=== PATIENT | female | born 1985 | race African-American/Black ===

== ENCOUNTER 2017-11-17 15:48 | Emergency (ER) | payer SELFPAY ==
[2017-11-17 15:56] VITALS: BP 141/94
--- NOTE | 2017-11-17 16:45 | ER Document Report ---
HPI - HPI Pain Level: 3 Notes: Patient is a 31-year-old female who presents to the ED complaining of right second digit pain at the PIP joint status post injury 3 weeks ago. Patient states that since then she has had continued swelling and decreased range of motion to that finger. Pain does not radiate. Patient did not get evaluated by anyone prior. She has no other concerns or complaints at this time. Denies any headache, fever, URI, sore throat, chest pain, palpitations, syncope, cough , shortness of breath, wheeze, dyspnea, abdominal pain, nausea/vomiting/diarrhea , urinary retention, dysuria, hematuria, numbness/tingling, muscle paralysis/ weakness, or rash. - ROS Systems Reviewed and Negative: Yes All other systems reviewed and negative - MUSCULOSKELETAL Musculoskeletal: REPORTS: Extremity pain - R index finger Past Medical History - Social History Smoking Status: Never Smoker Family History: Reviewed & Not Pertinent Patient has suicidal ideation: No Patient has homicidal ideation: No Renal/ Medical History: Denies: Hx Peritoneal Dialysis Vertical Provider Document - CONSTITUTIONAL Agree With Documented VS: Yes Notes: PHYSICAL EXAMINATION: GENERAL: Well-appearing, well-nourished and in no acute distress. LUNGS: Breath sounds clear to auscultation bilaterally and equal. No wheezes rales or rhonchi. HEART: Regular rate and rhythm without murmurs, rubs, gallops. Musculoskeletal: Rt index finger: + swelling noted at the PIP joint. LROM to passive/active to flexion. Strength 5+/5. N/V intact. Pt is able to flex at DIP and PIP joints, however. + mild tenderness to the PIP joint. No other tenderness to the hand. Extremities: No cyanosis, clubbing, or edema b/l. Peripheral pulses 2+. Capillary refill less than 3 seconds. NEUROLOGICAL: Normal speech, normal gait. Normal sensory, motor exams PSYCH: Normal mood, normal affect. SKIN: Warm, Dry, normal turgor, no rashes or lesions noted. - INFECTION CONTROL TRAVEL OUTSIDE OF THE [place] IN LAST 30 DAYS: No Course - Re-evaluation Re-evalutation: 11/17/17 17:44 Patient is an afebrile, well-hydrated, 31-year-old female who presents to the ED with an avulsion fracture to her right anterior PIP joint 2nd digit. Vitals are otherwise acceptable. PE is otherwise unremarkable for any neurovascular compromise, open fracture, septic joint. See x-ray result. Finger spot was placed in mild flexion. This injury is already 3 weeks old. Advised patient that she needs to call orthopedics tomorrow to set up an appointment for further evaluation and management. Recheck with your PCM in 3-5 days as well. Return to the ED with any worsening/concerning symptoms otherwise as reviewed discharge. Patient is in agreement. - Vital Signs Vital signs: Temp Pulse Resp BP Pulse Ox 99.4 F 70 16 141/94 H 100 11/17/17 15:53 11/17/17 15:53 11/17/17 15:53 11/17/17 15:53 11/17/17 15:53 Discharge - Discharge Clinical Impression: Finger fracture, right Qualifiers: Encounter type: initial encounter Finger: index finger Fracture type: closed Phalanx: proximal Fracture alignment: nondisplaced Qualified Code(s): S62.640A - Nondisplaced fracture of proximal phalanx of right index finger, initial encounter for closed fracture Condition: Stable Disposition: HOME, SELF-CARE Instructions: Avulsion Fracture ([facility]) Additional Instructions: Rest, Ice, Compression, Elevation Wear splint as directed Tylenol/ibuprofen as needed Light stretches daily Strength exercises as able Moist heat and massage may help F/u with your PCP in 3-5 days for a recheck Call orthopedics tomorrow to set up an appointment for further evaluation and management Return to the ED with any worsening symptoms and/or development of fever, headache, chest pain, palpitations, syncope, shortness of breath, trouble breathing, abdominal pain, n/v/d, muscle weakness/paralysis, numbness/tingling, swelling, redness, or other worsening symptoms that are concerning to you. Forms: Elevated Blood Pressure Referrals: [facility] ([facility] [Provider Group] - Follow up in 3-5 days
--- NOTE | 2017-11-17 17:40 | RADIOLOGY REPORT (SQ) ---
EXAM DESCRIPTION: FINGER RIGHT COMPLETED DATE/TIME: 11/17/2017 4:04 pm REASON FOR STUDY: Pain s/p injury 3 wks ago COMPARISON: None. NUMBER OF VIEWS: Three views. TECHNIQUE: AP, lateral, and oblique images acquired of the right second finger. LIMITATIONS: None. FINDINGS: MINERALIZATION: Normal. BONES: Avulsion proximal end middle phalanx ventral surface seconds digit SOFT TISSUES: No soft tissue swelling. No foreign body. OTHER: No other significant finding. IMPRESSION: Avulsion ventral surface middle phalanx seconds digit COMMENT: SITE OF TRAUMA/COMPLAINT MARKED/STAMP COMPLETED: Yes TECHNICAL DOCUMENTATION: JOB ID: [id number]- All Rights Reserved Reading location - IP/workstation name: [email or web address]
== END 2017-11-17 17:59 | disposition home or self-care (01) ==
LOC: ER 15:48
DX: S62.640A Nondisplaced fracture of proximal phalanx of right index finger, initial encounter for closed fracture (principal); M79.644 Pain in right finger(s); X58.XXXA Exposure to other specified factors, initial encounter
CPT/HCPCS: 99283